=== PATIENT | female | born 1985 | race Caucasian/White ===

== ENCOUNTER 2018-08-25 07:53 | Emergency (ER) | payer SELFPAY ==
[2018-08-25] MEDS ORDERED: diphenhydrAMINE 50 MG/ML VIAL ONE (08:25)
[2018-08-25] MEDS ORDERED: Metoclopramide HCl 10 MG/2 ML VIAL ONE ×2 (08:26→09:47)
[2018-08-25] MEDS ORDERED: Sodium Chloride 0.9% 0 ML ONE ×2 (08:26→09:50)
[2018-08-25] MEDS ORDERED: Ketorolac Tromethamine 30 MG/ML VIAL ONE (09:46)
[2018-08-25] MEDS ORDERED: methylPREDNISolone Sod Succ/PF 125 MG/2 ML VIAL ONE (09:48)
[2018-08-25] MEDS ORDERED: Sodium Chloride 0.9% 1,000 ML ONE (09:50)
== END 2018-08-25 11:05 | disposition home or self-care (01) ==
LOC: NAV ERS 07:53
DX: G43.909 Migraine, unspecified, not intractable, without status migrainosus (principal); J45.909 Unspecified asthma, uncomplicated
CPT/HCPCS: 96361; 96365; 96375; 96376; J1200; J1885; J2765; J2930; J7050